=== PATIENT | female | born 1985 | race Caucasian/White ===

== ENCOUNTER 2023-02-16 10:18 | Outpatient (CLI) | payer BC, SELFPAY ==
[2023-02-16 23:26] LABS: Chlamydia DNA Amplified* NOT DETECTED (No Detected); GC DNA Amplified* NOT DETECTED (No Detected)
== END 2023-02-16 10:19 | disposition home or self-care (01) ==
PROVIDERS: PCP Physician Assistant Medical; Visit Provider Physician Assistant Medical
DX: Z11.3 Encounter for screening for infections with a predominantly sexual mode of transmission (principal)
CPT/HCPCS: 87491; 87591

== ENCOUNTER 2023-02-18 08:36 | Outpatient (CLI) | payer BC, SELFPAY | END 2023-02-18 08:37 | disposition home or self-care (01) | LOC: NFLDREF 02-20 07:14 | PROVIDERS: PCP Physician Assistant Medical; Referring Provider Physician Assistant Medical; Visit Provider Physician Assistant Medical | DX: Z00.00 Encounter for general adult medical examination without abnormal findings (principal); K50.90 Crohn's disease, unspecified, without complications; R63.5 Abnormal weight gain; Z13.6 Encounter for screening for cardiovascular disorders; Z13.29 Encounter for screening for other suspected endocrine disorder; Z13.21 Encounter for screening for nutritional disorder | CPT/HCPCS: 80053; 80061; 82306; 82607; 83001; 84443; 86140 ==

== ENCOUNTER 2023-05-19 08:00 | Outpatient (RCR) | payer BC, SELFPAY | END 2023-07-12 10:32 | disposition home or self-care (01) | PROVIDERS: PCP Physician Assistant Medical; Visit Provider Physician Assistant Surgical | DX: S83.014A Lateral dislocation of right patella, initial encounter (principal); S83.004A Unspecified dislocation of right patella, initial encounter; M25.561 Pain in right knee; M25.361 Other instability, right knee; Z51.89 Encounter for other specified aftercare | CPT/HCPCS: 97110; 97161 ==

== ENCOUNTER 2023-05-23 08:09 | Outpatient (CLI) | payer BC, SELFPAY ==
--- NOTE | 2023-05-23 08:15 | CRLHL7_ITS ---
For Patients: As a result of the Century Cures Act, medical imaging exams and procedure reports are released immediately into your electronic medical record. You may view this report before your referring provider. If you have questions, please contact your health care provider. BILATERAL SCREENING MAMMOGRAM WITH COMPUTER-AIDED DETECTION TECHNIQUE: CC and MLO views were obtained. These mammographic images have been obtained using full-field digital technique. These mammographic images were interpreted with the benefit of computer-aided detection. COMPARISON FILM: Baseline. FINDINGS: There are scattered areas of fibroglandular density IMPRESSION: There is no radiographic evidence for malignancy. ASSESSMENT: BI-RADS Category 1: Negative RECOMMENDATION: Routine screening mammogram in 1 year. A lay language report of this examination will be provided to the patient. Onel Gallagher M.D. Diagnostic Radiologist [email or web address] Transcribed: 7:42 p.josh ryder/Dictated by: Onel Gallagher MD @ 05/23/2023 11:44:00 AM (Electronically Signed)
== END 2023-05-23 08:10 | disposition home or self-care (01) ==
PROVIDERS: PCP Physician Assistant Medical; Visit Provider Physician Assistant Medical
DX: Z12.31 Encounter for screening mammogram for malignant neoplasm of breast (principal)
CPT/HCPCS: 77067

== ENCOUNTER 2023-05-26 11:40 | Outpatient (CLI) | payer BC, SELFPAY | END 2023-05-26 11:41 | disposition home or self-care (01) | LOC: NFLDREF 05-30 05:54 | PROVIDERS: PCP Physician Assistant Medical; Referring Provider Physician Assistant Medical; Visit Provider Physician Assistant Medical | DX: R63.5 Abnormal weight gain (principal); R74.8 Abnormal levels of other serum enzymes | CPT/HCPCS: 80076; 82533 ==

== ENCOUNTER 2024-07-10 15:12 | Outpatient (CLI) | payer BC, SELFPAY ==
--- OUTSIDE RECORDS SUMMARY | 2024-07-10 15:14 | XMS_ITS | Referral Summary ---
Author Organization [facility] Address [address] [place] [address] Care Team Providers Care Real Time Trader Name Role Phone Unavailable Primary Care Provider Unavailabl e Source Comments Patient records contain information from all sites at [facility]. For routine questions regarding patient records, call [phone] during business hours, M-F 8:00 AM - 5:00 PM Central Time. Record requests for emergency care only can be directed to [phone] at any time.[facility] Encounters Date Type Department Care Team Description 07/04/2024 Refill Division of Gastroenterology in [place], [place] [address] [place] [address] Shelby Mckenzie M.D. Med Refill from Last 3 Months Allergies Active Allergy Reactions Criticality Noted Date Comments Adalimumab Hives (Reselect Reaction),Rash Low 05/23 Infliximab Hypotension (Reselect Reaction) 07/01 Pseudoephedrine Other (see comments) 08/14/2014 Medications Lactobacillus acidophilus (ACIDOPHILUS ORAL) Take 2 tablets by mouth 2 (two) times a day. 10/07/19 12 Active multivitamin tablet Take 1 tablet by mouth daily. 06/30/20 10 Active loperamide (IMODIUM A-D) 2 mg capsuleIndicati ons:Diarrhea Take 1 capsule (2 mg total) by mouth 2 (two) times a day as needed for diarrhea. 60 capsule 5 07/08/20 20 Active cholecalciferol (VITAMIN D3) 50 mcg (2,000 Unit) tablet Take 50 mcg by mouth daily. Active fish oil 500 mg capsule Take 500 mg by mouth 3 (three) times a day. Active cholestyramine (QUESTRAN) 4 gram packetIndicatio ns:Diarrhea Take 1 packet by mouth 2 times a day 60 packet 11 09/02/19 23 Active cholestyramine (Questran) 4 gram powder Take 4 g by mouth 2 (two) times a day with meals. Dissolve in 8 oz of liquid and drink before a meal. 378 g 07/05/20 24 Active cholestyramine (Questran) 4 gram powder Take 4 g by mouth 2 (two) times a day with meals. Dissolve in 8 oz of liquid and drink before a meal 1 Jar 3 02/29/20 24 024 Discontinued Active Problems Problem Noted Date Diagnosed Date Tenderness Left Upper Quadrant Abdominal 022 Cancer Skin Basal Cell Personal History 05/13/20 21 Hernia Incisional 01/20/2018 Overview (01/20/2018): Added automatically from request for surgery [id number] Debility 07/09/2010 Anal/Rectal Fistula NOS 04/03/2004 Ileocolitis Crohn's 10/30/2003 Perianal Crohn's Disease 10/28/2003 Resolved Problems Problem Noted Date Diagnosed Date Resolved Date Crohn's Disease 01/20/2018 05/13/2021 Overview (01/20/2018): Added automatically from request for surgery [id number] Ileitis Crohn's 10/28/2003 05/13/2021 Social History Tobacco Use Types Packs/Day Years Used Date Smoking Tobacco: Never Smokeless Tobacco: Never Alcohol Use Standard Drinks/Week Comments Not Currently 0 (1 standard drink = 0.6 oz pur e alcohol) [facility] Utilities Answer Date Recorded In the past 12 months has e [employer], gas, oil, or water [employer] threatened to shut off services in your home? No 08/05/2023 Humiliation, Afraid, Rape, and Kick questionnair e Answer Date Recorded Within the last year, have y ou been afraid of your partner or ex-partner? No 07/07/2022 Within the last year, have y ou been humiliated or emotionally abused in other ways by your partner or ex-partner? No Within the last year, have y ou been kicked, hit, slapped, or otherwise physically hurt by your partner or ex-partner? No 07/07/2022 Within the last year, have y ou been raped or forced to have any kind of sexual activity by your partner or ex-partner? No 07/07/2022 Social Connection and Isolat ion Panel [NHANES] Answer Date Recorded In a typical week, how many times do you talk on the phone with family, friends, or neighbors? More than three times a week 07/07/2022 How often do you get togethe r with friends or relatives? More than three times a week 07/07/2022 How often do you attend chur or evangelical services? More than 4 times per year 07/07/2022 Do you belong to any clubs o r organizations such as mandaeism groups, unions, fraternal or athletic groups, or school groups? No 07/07/2022 How often do you attend meet ings of the clubs or organizations you belong to? Patient declined 07/07/2022 Are you , , di vorced, , never , or living with a partner? 07/07/2022 AUDIT-C Answer Date Recorded Q1: How often do you have a drink containing alc ohol? Monthly or less 07/07/2022 Q2: How many drinks containi ng alcohol do you have on a typical day when you are drinking? 1 or 2 07/07/2022 Q3: How often do you have si x or more drinks on one occasion? Never 07/07/2022 Overall Financial Resource Strain (CARDIA) Answe r Date Recorded How hard is it for you to pa y for the very basics like food, housing, medical care, and heating? Not hard at all 07/07/2022 [facility] [place] of Occupat ional Health - Occupational Stress Questionnaire Answer Date Recorded Do you feel stress - tense, restless, nervous, or anxious, or unable to sleep at night because your mind is troubled all the time - these days? Only a little 07/07/2022 Exercise Vital Sign Answer Date Recorde d On average, how many days pe r week do you engage in moderate to strenuous exercise (like a brisk walk)? 4 days 08/05/2023 On average, how many minutes do you engage in exercise at this level? 30 min 08/05/2023 Hunger Vital Sign Answer Date Recorded Within the past 12 months, y ou worried that your food would run out before you got the money to buy more. Never true 08/05/19 24 Within the past 12 months, t he food you bought just didn't last and you didn't have money to get more. Never true 08/05/2023 PRAPARE - Transportation Answer Date Re corded In the past 12 months, has l ack of transportation kept you from medical appointments or from getting medications? No 11/2023 In the past 12 months, has l ack of transportation kept you from meetings, work, or from getting things needed for daily living? No 08/05/2023 Nutrition Answer Date Recorded On average, how many serving s of fruits and vegetables do you eat per day (serving size is equal to 1 cup or approximately the size of a tennis ball)? 3-5 08/05/2023 Dental Answer Date Recorded Dental: Regular Dentist Yes 05/11/20 Employment Answer Date Recorded Employment status Employed and actively working without restrictions 08/05/2023 Housing Stability Answer Date Recorded What is your living situation today? I have a [facility] place to live 08/05/2023 Education Answer Date Recorded What is the highest level of school you have completed or the highest degree you have received? Bachelor's degree (e.g., BA, AB, BS) 05/11/2021 Comments No Sex and Gender Information Value Date Recorded Sex Assigned at Female 01/10/2018 3:20 PM CDT Legal Sex Female 8:27 AM IT SECURITY ADMINISTRATOR Gender Identity Female 01/10/2018 3:20 PM CDT Sexual Orientation Straight 01/10/2018 3: 20 PM CDT Last Filed Vital Signs Vital Sign Reading Time Taken Comments Blood Pressure 128/82 08/09/2023 10:15 AM IT SECURITY ADMINISTRATOR Pulse 65 08/09/2023 10:15 AM IT SECURITY ADMINISTRATOR Temperature 36.5 C (97.7 F) 08/09/2023 9:48 AM IT SECURITY ADMINISTRATOR Respiratory Rate 15 08/09/2023 10:15 AM IT SECURITY ADMINISTRATOR Oxygen Saturation 99% 08/09/2023 10:15 AM IT SECURITY ADMINISTRATOR Inhaled Oxygen Concentration - - Weight 84.9 kg (187 lb 2.7 oz) 02/15/2018 7:21 A M CDT Height 170.2 cm (5' 7) 08/09/2023 7:39 AM IT SECURITY ADMINISTRATOR Body Mass Index 28.37 02/15/2018 7:21 AM CDT Plan of Treatment Upcoming Encounters Date Type Department Care Team (Late st Contact Info) Description 08/15/2024 9:30 AM IT SECURITY ADMINISTRATOR Appointment Department of Radiology, [place], [place] [address] [place] [phone] Sharon Godinez P.A.-C., M.S. 08/15/2024 11:40 AM IT SECURITY ADMINISTRATOR Appointment Department of Laboratory Medicine and Pathology, [place], [place] [address] [place] [phone] Sharon Godinez P.A.-C., M.S. 08/15/2024 1:00 PM IT SECURITY ADMINISTRATOR Procedure visit Division of Gastroenterology in [place], [place] [address] [place] [phone] Sharon Godinez P.A.-C., M.S. 08/16/2024 9:10 AM IT SECURITY ADMINISTRATOR Telemedicine Division of Gastroenterology in [address] [phone] Remy Khan P.A.-C. [address] [place] [phone] Medical Devices Implanted Type Area [place] Device Identifier Shelf Expiration Date Model / Serial / Lot Seprafilm 3x 5 (Procedure Pack) - [id number] [id number] Implanted:Qty: 1 on 10/19/2011 Mesh or Patch [employer]ee Description:Device Manufactu rer - Genzyme Jemal.. Device Status Text - [id number]. [facility] [place]esta Polyprp 6x6 - [id number] Implanted:Qty: 1 on 02/15/2018 by Mack Hurtado M.D. at [facility] Mesh or Patch [employer] 05/28/2022 [id number] / / [id number] Procedures Procedure Name Priority Date/Time Associated Diagnosis Comments COLONOSCOPY Routine 08/09/2023 8:34 AM IT SECURITY ADMINISTRATOR Ileocolitis Crohn's (HCC) PATHOLOGY LOG SORTING SUPERVISOR CYTOLOGY Routine 04/18/2014 5:38 PM CDT from Last 3 Months or Most Recently Relevant to Health Maintenance Results * Pathology LOG SORTING SUPERVISOR Cytology (04/18/2014 5:38 PM CDT) 04/18/2014 5:38 PM CDT 04/18/2014 5:38 PM CDT Narrative [facility] - 04/18/2014 5:38 PM CDT 04/18/2014 Cytology Gynecological ([id number]) Requested By:Yamilet Marsh Asp, C.N.P. [id number] DIAGNOSIS: A. ThinPrep Pap Test Screen (Cervical/Endocervical HPV Reflex): Satisfactory for evaluation. Negative for intraepithelial lesion or malignancy. Report electronically signed by LONDON Maradiaga(ASCP) 04/22/2014 14:14 Interpreted by: LONDON Maradiaga(ASCP) SPECIMEN DESCRIPTION: A. ThinPrep Pap Test Screen (Cervical/Endocervical HPV Reflex): Received cloudy specimen in ThinPrep vial. Procedure Note 10/26/2017 04/18/2014 Cytology Gynecological ([id number]) Requested By:Yamilet Marsh Asp, C.N.P. [id number] DIAGNOSIS: A. ThinPrep Pap Test Screen (Cervical/Endocervical HPV Reflex): Satisfactory for evaluation. Negative for intraepithelial lesion or malignancy. Report electronically signed by LONDON Maradiaga(ASCP) 04/22/2014 14:14 Interpreted by: LONDON Maradiaga(ASCP) SPECIMEN DESCRIPTION: A. ThinPrep Pap Test Screen (Cervical/Endocervical HPV Reflex): Received cloudy specimen in ThinPrep vial. Yamilet Shine Asp C.N.P., M.S. LAB PAP DIMITRY LILLY Final Result [facility] [address] [place] [address], [facility] from Last 3 Months or Most Recently Relevant to Health Maintenance Additional Health Concerns Infection Onset Date Last Indicated VRE Comment:No Historical Comment Imported in Epic 07/13/2010 010 Insurance [employer] Advance Directives For more information, please contact: [phone] * Full Code (Latest Code Status on File) Date Activated Date Inactivated Comments 02/15/2018 6:59 AM 02/15/2018 3:23 PM Question Answer Comments Full Code: Discussed
--- OUTSIDE RECORDS SUMMARY | 2024-07-10 15:14 | XMS_ITS | Encounter Summary ---
Author Organization [facility] Address [address] [place] [address] Care Team Providers Care Relay Worker Name Role Phone Unavailable Primary Care Provider Unavailabl e Reason for Visit * Reason Comments Med Refill Encounter Details Date Type Department Care Team (Late st Contact Info) Description 07/04/2024 Refill Division of Gastroenterology in [place], [place] [address] [place] [address] Shelby Mckenzie M.D. [address] [place] [phone] Med Refill Social History Tobacco Use Types Packs/Day Years Used Date Smoking Tobacco: Never Smokeless Tobacco: Never Alcohol Use Standard Drinks/Week Comments Not Currently 0 (1 standard drink = 0.6 oz pur e alcohol) [facility] Utilities Answer Date Recorded In the past 12 months has e electric, gas, oil, or water company threatened to shut off services in your [...] week 07/07/2022 How often do you attend [facility] or yazidism services? More than 4 times per year 07/07/2022 Do you belong to any clubs o r organizations such as mu-ism groups, unions, fraternal or athletic groups, or [...] and heating? Not hard at all 07/07/2022 [facility] [place] of Occupat ionmi Health - Occupational Stress Questionnaire Answer Date [...] Date Recorded Dental: Regular Dentist Yes 05/11/20 21 Employment Answer Date Recorded Employment status Employed and actively working without restrictions 08/05/2023 Housing Stability Answer Date Recorded What is your living situation today? I have a [facility] place to live 08/05/2023 Education Answer Date Recorded What is the highest level of school you have completed or the highest degree you have received? Bachelor's degree (e.g., BA, AB, BS) 05/11/2021 Comments No Sex and Gender Information Value Date Recorded Sex Assigned at Female 01/10/2018 3:20 PM CDT Legal Sex Female 8:27 AM CIA AGENT Gender Identity Female 01/10/2018 3:20 PM CDT Sexual Orientation Straight 01/10/2018 3: 20 PM CDT documented as of this encounter Plan of Treatment Upcoming Encounters Date Type Department Care Team (Late st Contact Info) Description 08/15/2024 9:30 AM CIA AGENT Appointment Department of Radiology, [facility], in [place], [place] [address] [place] [address] Sharon Godinez P.A.-C., M.S. 08/15/2024 11:40 AM CIA AGENT Appointment Department of Laboratory Medicine and Pathology, [place], in [place], [place] [address] [place] [address] Sharon Godinez P.A.-C., M.S. 08/15/2024 1:00 PM CIA AGENT Procedure visit Division of Gastroenterology in [place], [place] [address] [place] [address] Sharon Godinez P.A.-C., M.S. 08/16/2024 9:10 AM CIA AGENT Telemedicine Division of Gastroenterology in [place], [place] [address] [place] [address] Remy Khan P.A.-C. [address] [place] [phone] documented as of this encounter Visit Diagnoses Not on filedocumented in this encounter Additional Health Concerns Infection Onset Date Last Indicated Resolved Time VRE Comment:No Historical Comment Imported in Epic 07/13/2010 07/13/2010 documented as of this encounter
--- OUTSIDE RECORDS SUMMARY | 2024-07-10 15:14 | XMS_ITS | Clinical Summary ---
Author Organization [facility] Address [address] [place] [address] Care Team Providers Care Union Laborer Name Role Phone Unavailable Primary Care Provider Unavailabl e Source Comments Patient records contain information from all sites at [facility]. For routine questions regarding patient records, call [phone] during business hours, M-F 8:00 AM - 5:00 PM Central Time. Record requests for emergency care only can be directed to [phone] at any time.[facility] Allergies Active Allergy Reactions Criticality Noted Date [...] (01/20/2018): Added automatically from request for surgery [id number] Debility 07/09/2010 Anal/Rectal Fistula NOS 04/03/2004 Ileocolitis Crohn's 10/30/2003 Perianal Crohn's Disease 10/28/2003 Resolved Problems Problem Noted Date Diagnosed Date Resolved Date Crohn's Disease 01/20/2018 05/13/2021 Overview (01/20/2018): Added automatically from request for surgery [id number] Ileitis Crohn's 10/28/2003 05/13/2021 Encounters Date Type Department Care Team Description 07/04/2024 Refill Division of Gastroenterology in [address] [phone] Shelby Mckenzie M.D. Med Refill from Last 3 Months Family History Medical History Relation Name Comments Coronary artery disease Father Raymundo Diabetes Father Raymundo Dementia Paternal Grandmother Taniya Skin cancer Sister Kelley Thyroid disease Sister Kelley Ulcerative colitis Sister Kelley Relation Name Status Comments Father Raymundo Paternal Grandmother Taniya Sister Kelley Social History Tobacco Use Types Packs/Day Years Used Date Smoking Tobacco: Never Smokeless Tobacco: Never Alcohol Use Standard Drinks/Week Comments Not Currently 0 (1 standard drink = 0.6 oz pur e alcohol) [facility] Utilities Answer Date Recorded In the past 12 months has th e electric, gas, oil, or water company [...] How often do you attend chur or rastafari services? More than 4 times per year 07/07/2022 Do you belong to any clubs o r organizations such as alevism groups, unions, fraternal or athletic groups, or [...] and heating? Not hard at all 07/07/2022 [place] of Occupat ional Health - Occupational Stress [...] your living situation today? I have a [facility] place to live 08/05/2023 Education Answer Date Recorded What is the highest level of school you have completed or the highest degree you have received? Bachelor's degree (e.g., BA, AB, BS) 05/11/2021 Comments No Sex and Gender Information Value Date Recorded Sex Assigned at Female 01/10/2018 3:20 PM CDT Legal Sex Female 8:27 AM DENTAL EQUIPMENT MECHANIC Gender Identity Female 01/10/2018 3:20 PM CDT Sexual Orientation Straight 01/10/2018 3: 20 PM CDT Last Filed Vital Signs Vital Sign Reading Time Taken Comments Blood Pressure 128/82 08/09/2023 10:15 AM DENTAL EQUIPMENT MECHANIC Pulse 65 08/09/2023 10:15 AM DENTAL EQUIPMENT MECHANIC Temperature 36.5 C (97.7 F) 08/09/2023 9:48 AM DENTAL EQUIPMENT MECHANIC Respiratory Rate 15 08/09/2023 10:15 AM DENTAL EQUIPMENT MECHANIC Oxygen Saturation 99% 08/09/2023 10:15 AM DENTAL EQUIPMENT MECHANIC Inhaled Oxygen Concentration - - Weight 84.9 kg (187 lb 2.7 oz) 02/15/2018 7:21 A M CDT Height 170.2 cm (5' 7) 08/09/2023 7:39 AM DENTAL EQUIPMENT MECHANIC Body Mass Index 28.37 02/15/2018 7:21 AM CDT Plan of Treatment Upcoming Encounters Date Type Department Care Team (Late st Contact Info) Description 08/15/2024 9:30 AM DENTAL EQUIPMENT MECHANIC Appointment Department of Radiology, [place], [place] [address] [place] [phone] Sharon Godinez P.A.-C., M.S. 08/15/2024 11:40 AM DENTAL EQUIPMENT MECHANIC Appointment Department of Laboratory Medicine and Pathology, [facility] in [place], [place] [address] [place] [phone] Sahron Godinez P.A.-C., M.S. 08/15/2024 1:00 PM DENTAL EQUIPMENT MECHANIC Procedure visit Division of Gastroenterology in [place], [place] [address] [place] [phone] Sharon Godinez P.A.-C., M.S. 08/16/2024 9:10 AM DENTAL EQUIPMENT MECHANIC Telemedicine Division of Gastroenterology in [place], [place] [address] [place] [phone] Remy Khan P.A.-C. [address] [place] [phone] Health Maintenance Due Date Last Done Comments Hepatitis C Screening 1983 Lipid (Cholesterol) Screening 1983 Mammogram 1983 Hepatitis B Vaccines (1 of 3 - 19+ 3-dose series) 2002 Cervical/Vaginal Cancer Screening 11/24/2017 11/24/2014 (Performed elsewhere), 04/18/2014, 10/28/2003 DTaP,Tdap,and Td Vaccines (1 - Tdap) 02/17/2023 02/16/2023 Depression Screening (Annual PHQ-2) 08/01/2023 COVID-19 Vaccine (1 - season) 2024 Influenza Vaccine (#1) 2024 Colonoscopy Discontinued 08/09/2023, 04/2024, 09/08/2021, Additional history exists Colorectal Cancer Surveillance Discontinued CT Colonography Discontinued Cologuard Discontinued HPV Vaccines Aged Out No longer eligi ble based on patient's age to complete this topic IPV Vaccines Aged Out No longer eligi ble based on patient's age to complete this topic Pneumococcal vaccine (0-64 years) Aged Out No longer eligible based on patient's age to complete this topic Medical Devices Implanted Type Area Neurocritical Care Physician Device Identifier Shelf Expiration Date Model / Serial / Lot Seprafilm 3x 5 (Procedure Pack) - [id number] [id number] Implanted:Qty: 1 on 10/19/2011 Mesh or Patch deeplocal Description:Device Manufactu rer - Micropelt Jemal.. Device Status Text - [id number]. [facility] [place] Polyprp 6x6 - [id number] Implanted:Qty: 1 on 02/15/2018 by Mack Hurtado M.D. at [facility] Mesh or Patch [employer].Calvert 05/28/2022 [id number] / / [id number] Procedures Procedure Name Priority Date/Time Associated Diagnosis Comments COLONOSCOPY Routine 08/09/2023 8:34 AM DENTAL EQUIPMENT MECHANIC Ileocolitis Crohn's (HCC) PATHOLOGY ASSISTANT STORE DIRECTOR CYTOLOGY Routine 04/18/2014 5:38 PM CDT from Last 3 Months or Most Recently Relevant to Health Maintenance Results * Pathology ASSISTANT STORE DIRECTOR Cytology (04/18/2014 5:38 PM CDT) 04/18/2014 5:38 PM CDT 04/18/2014 5:38 PM CDT Narrative [facility] - 04/18/2014 5:38 PM CDT 04/18/2014 Cytology Gynecological ([id number]) Requested By:Yamilet Marsh Asp, C.N.P. [id number] DIAGNOSIS: A. ThinPrep Pap Test Screen (Cervical/Endocervical HPV Reflex): Satisfactory for evaluation. Negative for intraepithelial lesion or malignancy. Report electronically signed by LONDON Maradiaga(ASCP) 04/22/2014 14:14 Interpreted by: LONDON Maradiaga(ASCP) SPECIMEN DESCRIPTION: A. ThinPrep Pap Test Screen (Cervical/Endocervical HPV Reflex): Received cloudy specimen in ThinPrep vial. Procedure Note 10/26/2017 04/18/2014 Cytology Gynecological ([id number]) Requested By:Yamilet Marsh Asp, C.N.P. [id number] DIAGNOSIS: A. ThinPrep Pap Test Screen (Cervical/Endocervical HPV Reflex): Satisfactory for evaluation. Negative for intraepithelial lesion or malignancy. Report electronically signed by LONDON Maradiaga(ASCP) 04/22/2014 14:14 Interpreted by: LONDON Maradiaga(ASCP) SPECIMEN DESCRIPTION: A. ThinPrep Pap Test Screen (Cervical/Endocervical HPV Reflex): Received cloudy specimen in ThinPrep vial. Yamilet Shine Asp C.N.P., M.S. LAB PAP COPATH ORDERA BLES Final Result [address] from Last 3 Months or Most Recently Relevant to Health Maintenance Additional Health Concerns Infection Onset Date Last Indicated VRE Comment:No Historical Comment Imported in [facility] 07/13/2010 010 Insurance [facility] [place] [address] Advance Directives For more information, please contact: [phone] * Full Code (Latest Code Status on File) Date Activated Date Inactivated Comments 02/15/2018 6:59 AM 02/15/2018 3:23 PM Question Answer Comments Full Code: Discussed
--- OUTSIDE RECORDS SUMMARY | 2024-07-10 15:14 | XMS_ITS ---
Author Organization [facility] Address [address] [place] [address] Care Team Providers Care Adjunct Professor Of Law Name Role Phone Unavailable Unavailable Unavailable Surgery Details Not on file Complications Check Surgery Details section. Procedure Estimated Blood Loss Check Surgery Details section. Procedure Findings Check Surgery Details section. Procedure Specimens Taken Check Surgery Details section.
--- NOTE | 2024-07-10 15:20 | CRLHL7_ITS ---
For Patients: As a result of the Cures Act, medical imaging exams and procedure reports are released immediately into your electronic medical record. You may view this report before your referring provider. If you have questions, please contact your health care provider. BILATERAL SCREENING MAMMOGRAM WITH COMPUTER-AIDED DETECTION AND TOMOSYNTHESIS, 07/10/2024 TECHNIQUE: CC and MLO views were obtained. These mammographic images have been obtained using full-field digital technique. These mammographic images were interpreted with the benefit of computer-aided detection. Breast Tomosynthesis was used in this interpretation. COMPARISON FILM: 05/23/23. FINDINGS: The breasts are almost entirely fatty IMPRESSION: There is no radiographic evidence for malignancy. ASSESSMENT: BI-RADS Category 1: Negative RECOMMENDATION: Routine screening mammogram in 1 year. A lay language report of this examination will be provided to the patient. Onel Gallagher M.D. Diagnostic Radiologist [email or web address]: Transcribed: 9:08 am DW/Dictated by: Onel Gallagher MD @ 07/11/2024 12:54:00 PM (Electronically Signed)
== END 2024-07-10 15:13 | disposition home or self-care (01) ==
LOC: MAMMO 15:12
PROVIDERS: PCP Physician Assistant Medical; Visit Provider Physician Assistant Medical
DX: Z12.31 Encounter for screening mammogram for malignant neoplasm of breast (principal)
CPT/HCPCS: 77063; 77067

== ENCOUNTER 2024-09-06 07:46 | Outpatient (CLI) | payer BC, SELFPAY | END 2024-09-06 07:47 | disposition home or self-care (01) | LOC: CT 07:47 | PROVIDERS: PCP Physician Assistant Medical; Visit Provider Physician Assistant Medical | DX: J32.9 Chronic sinusitis, unspecified (principal); J32.0 Chronic maxillary sinusitis; J34.2 Deviated nasal septum | CPT/HCPCS: 70486 ==

== ENCOUNTER 2024-11-16 11:15 | Day surgery (SDC) | payer BC, SELFPAY ==
[2024-11-16] VITALS (12 sets, daily range): BP systolic 116–133; BP diastolic 80–96; PULSE 80–99; RESP 14–16; TEMP 36.3–36.8; O2SAT 96–100; BMI 32.3
[2024-11-16] MEDS: LACTATED RINGERS 1000 ML 1,000 ML 100 ML IV (11:35)
[2024-11-16] MEDS: SODIUM CHLORIDE 0.9 % (FLUSH) 10 ML SYRINGE IVF (12:01)
[2024-11-16] MEDS: OXYMETAZOLINE 0.05% NASAL SPRAY 2 SPRAY NOSTRIL-B (12:04)
[2024-11-16] MEDS: COCAINE HCL 4 % 4 ML SOLUTION NOSTRIL-B (12:56)
[2024-11-16] MEDS: BUPIVACAINE 0.5%/EPINEPHRINE 0.9 MG (30.9 ML) INJECTION (13:08)
[2024-11-16] MEDS: MUPIROCIN 1 GM PACKET 1 APPLIC TOPICAL (13:12)
--- NOTE | 2024-11-16 13:27 | P.ANES_ITS ---
Anesthesia Charges Start Date/Time Anesthesia Start Date: 11/16/24 Anesthesia Start Time: 12:37 Stop Date/Time Anesthesia Stop Date: 11/16/24 Anesthesia Stop Time: 13:27 Coding CPT Codes CPT Codes: ANESTH NOSE/SINUS SURGERY - 94768 ([id number]) P2 - PATIENT W/MILD SYST DISEASE, QK - CITY SURVEYOR 2-4 CNCRNT ANES PROC, QX - COMMUNICATIONS ENGINEERING TECHNICIAN SVC W/ MD MED DIRECTION
--- NOTE | 2024-11-16 13:27 | W.ANESCHARGE ---
Anesthesia Charges Start Date/Time Anesthesia Start Date: 11/16/24 Anesthesia Start Time: 12:37 Stop Date/Time Anesthesia Stop Date: 11/16/24 Anesthesia Stop Time: 13:27 Coding CPT Codes CPT Codes: ANESTH NOSE/SINUS SURGERY - 30972 ([id number]) P2 - PATIENT W/MILD SYST DISEASE, QK - MULTIMEDIA TEACHER 2-4 CNCRNT ANES PROC, QX - TINNING MACHINE SET UP OPERATOR SVC W/ MD MED DIRECTION
--- NOTE | 2024-11-16 13:34 | P.ANES_ITS ---
Anesthesia Charges Start Date/Time Anesthesia Start Date: 11/16/24 Anesthesia Start Time: 12:37 Stop Date/Time Anesthesia Stop Date: 11/16/24 Anesthesia Stop Time: 13:27 Coding CPT Codes CPT Codes: ANESTH NOSE/SINUS SURGERY - 42680 ([id number]) QK - MARINE WATER TENDER 2-4 CNCRNT ANES PROC, QX - IMPREGNATING MACHINE OPERATOR SVC W/ MD MED DIRECTION, P2 - PATIENT W/MILD SYST DISEASE
--- NOTE | 2024-11-16 13:34 | W.ANESCHARGE ---
Anesthesia Charges Start Date/Time Anesthesia Start Date: 11/16/24 Anesthesia Start Time: 12:37 Stop Date/Time Anesthesia Stop Date: 11/16/24 Anesthesia Stop Time: 13:27 Coding CPT Codes CPT Codes: ANESTH NOSE/SINUS SURGERY - 58834 ([id number]) QK - RECORDS SPECIALIST 2-4 CNCRNT ANES PROC, QX - STALLION MANAGER SVC W/ MD MED DIRECTION, P2 - PATIENT W/MILD SYST DISEASE
--- NOTE | 2024-11-16 13:41 | W.PM.ENTPROC ---
Procedure Note Date of procedure: 11/16/24 Procedure: Preop diagnosis bilateral chronic maxillary sinusitis Postoperative diagnosis same Procedure bilateral maxillary antrostomies with tissue removal utilizing 0 degree endoscopy and image guidance Under general trach anesthesia patient was prepped and draped usual fashion. The nose was decongested and the uncinate processes in the anterior heads of the middle turbinates injected. On the left side the inferior quarter the uncinate process was taken down revealing the natural ostium to the sinus which was partially occluded by polypoid tissue this polypoid tissue was removed and the antrostomy enlarged to approximately 9 mm. Small amount of polyp tissue was removed from the floor of the sinus and a more moderate amount from the and antrum entry. This was repeated on the right side in identical fashion with essentially identical findings. On the right side prior to removing the lower quarter of the uncinate process I did crush the right middle turbinate. Specimens were sent to pathology from both sinuses. A dissolvable gel pack was placed in the middle meatus on each side and Merocel packing placed on the right side because of the crushing of the turbinate. The patient procedure well was taken recovery in satisfactory condition. Blood loss was less than 10 mL Surgeon: Drake Matos MD
[2024-11-16] MEDS: IBUPROFEN 200 MG TABLET PO (14:37)
== END 2024-11-16 15:04 | disposition home or self-care (01) ==
LOC: OR 11:16
PROVIDERS: PCP Physician Assistant Medical; Visit Provider Otolaryngology
PROC: (CPT 31231; principal; 2024-11-16 12:30)
DX: J32.0 Chronic maxillary sinusitis (principal)
CPT/HCPCS: 31267; 00160; 88305; 88311; A9270; J0330; J1100; J2405; J2704; J3010; J7120